=== PATIENT | male | born 1990 | race African-American/Black ===

== ENCOUNTER 2016-10-09 12:20 | Emergency (ER) | payer OTHER ==
[~2016-10-09] VITALS: Ht 182.9 cm; Wt 79.4 kg
[2016-10-09 12:34] VITALS: BP 117/61
[2016-10-09] MEDS ORDERED: TDAP [DIPH/PERTUSSIS/TET] 0.5 ML VIAL IM ONE ×2 (13:47→14:00)
== END 2016-10-09 14:01 | disposition home or self-care (01) ==
LOC: ER 12:23
DX: S61.052A Open bite of left thumb without damage to nail, initial encounter (principal); H66.91 Otitis media, unspecified, right ear; H60.91 Unspecified otitis externa, right ear; Y04.1XXA Assault by human bite, initial encounter; Y93.89 Activity, other specified; Y92.89 Other specified places as the place of occurrence of the external cause; Y99.9 Unspecified external cause status
CPT/HCPCS: 90471; 90715; 99283; A4606; Z7610